=== PATIENT | male | born 1990 | race Caucasian/White ===

== ENCOUNTER 2019-07-20 23:42 | Emergency (ER) | payer MEDICAID, OTHER ==
[~2019-07-20] VITALS: Ht 188 cm; Wt 140.6 kg
[2019-07-21 03:45] VITALS: BP 118/81
[2019-07-21] MEDS ORDERED: LIDOCAINE 1% HCL (LOCAL ANESTH.) INJ 20ML MDV ONE (03:45)
[2019-07-21] MEDS ORDERED: IOHEXOL 300 MG/ML 100ML BOTTLE IJ ONE (04:03)
[2019-07-21 04:12] LABS: Eosinophils # (auto) 0 uL; White Blood Cell 9.7 10^3/uL (4.4-10.8)
[2019-07-21 04:13] LABS: Basophils # (auto) 0 uL; Basophils % (auto) 0.5 % (0.0-2.0); Hematocrit 54.5 % (41.0-53.0); Lymphocytes # (auto) 2.2 uL; Lymphocytes % (auto) 22.4 % (10.0-50.0); Mean Corpuscular Hemoglobin 30.8 pg (28.0-32.0); Mean Corpuscular Hgb Conc. 34.8 g/dL (32.0-36.0); Mean Corpuscular Volume 88.5 fL (80.0-100.0); Monocytes # (auto) 0.8 uL; Monocytes % (auto) 7.8 % (0.0-12.0); Neutrophils # (auto) 6.7 uL; Neutrophils % (auto) 69.3 % (37.0-80.0); Nucleated Red Blood Cells % 0.2 %; Platelet Count (auto) 263 10^3/uL (140-450); Red Blood Cells 6.16 10^6/uL (4.5-5.90); Red Cell Distribution Width 12.9 % (11.8-14.3)
[2019-07-21] MEDS ORDERED: BACITRACIN TOP OINT 1 UD PKG TOP ONE (04:15)
[2019-07-21 04:33] LABS: Albumin 4.3 g/dL (3.4-5.0); Calcium 9.4 mg/dL (8.5-10.1); Potassium 4.3 mmol/L (3.5-5.1)
[2019-07-21 04:38] LABS: BUN/Creatinine Ratio 12.6; Bilirubin, Total 1.1 mg/dL (0.2-1.0); Total Protein 7.9 g/dL (6.4-8.2)
== END 2019-07-21 06:15 | disposition home or self-care (01) ==
LOC: ER 23:42
DX: S31.114A Laceration without foreign body of abdominal wall, left lower quadrant without penetration into peritoneal cavity, initial encounter (principal); W26.0XXA Contact with knife, initial encounter; Y93.89 Activity, other specified; Y92.89 Other specified places as the place of occurrence of the external cause; Y99.8 Other external cause status
CPT/HCPCS: 12001; 36415; 74177; 80053; 85025; 99285; J2001; Q9967

== ENCOUNTER 2021-06-21 14:44 | Emergency (ER) | payer MEDICAID ==
[~2021-06-21] VITALS: Ht 188 cm; Wt 154.2 kg
[2021-06-21 16:27] VITALS: BP 131/96
[2021-06-21] MEDS ORDERED: AZIT500T66 PO (16:50)
[2021-06-21] MEDS ORDERED: METH4PAK PO (16:50)
== END 2021-06-21 17:00 | disposition home or self-care (01) ==
LOC: ER 14:44
DX: U07.1 COVID-19 (principal); J45.909 Unspecified asthma, uncomplicated; R06.02 Shortness of breath
CPT/HCPCS: 71045; 93005